=== PATIENT | female | born 1960 | race American Indian/Alaskan Native ===

== ENCOUNTER 2017-07-20 00:59 | Emergency (ER) | payer OTHER ==
[2017-07-20] MEDS ORDERED: TYLENOL PO ONE (02:32)
[2017-07-20 04:01] LABS: Bacteria,Urine 1+ /HPF (Negative); Bilirubin,Urine NEG (Negative); Blood,Urine NEG (Negative); Ketones,Urine NEG (Negative); Leukocyte Esterase,Urine NEG (Negative); Mucus,Urine FEW /HPF; Nitrite,Urine NEG (Negative); Protein,Urine <15 mg/dL mg/dL (Negative); Urobilinogen,Urine < 2.0 mg/dL (<2.0); WBC,Urine < 1.0 /HPF (0.0-6.0)
[2017-07-20 04:07] LABS: Alanine Aminotransferase 13 units/L (7-56); Albumin 4.5 g/dL (3.9-5); Albumin/Globulin Ratio 1.2 %; Alkaline Phosphatase 52 units/L (35-129); Anion Gap 18 mmol/L; BUN/Creatinine Ratio 14; Blood Urea Nitrogen 11 mg/dL (7-17); Calcium 9.6 mg/dL (8.4-10.2); Carbon Dioxide 27 mmol/L (22-30); Chloride 99.1 mmol/L (98-107); Glucose 128 mg/dL (65-100); Lipase 36 units/L (13-60); Sodium 140 mmol/L (137-145); Total Protein 8.2 g/dL (6.3-8.2)
[2017-07-20 04:56] LABS: Basophils % (Auto) 0.3 % (0.0-1.8); Eosinophils % (Auto) 2.8 % (0.0-4.3); Hematocrit 39.4 % (30.3-42.9); Hemoglobin 13.3 gm/dl (10.1-14.3); Mean Corpuscular HGB Conc 34 % (30-34); Mean Corpuscular Hemoglobin 29 pg (28-32); Mean Corpuscular Volume 87 fl (79-97); Platelet Count 314 K/mm3 (140-440); Red Blood Count 4.53 M/mm3 (3.65-5.03); Red Cell Distribution Width 14.4 % (13.2-15.2); White Blood Count 7.9 K/mm3 (4.5-11.0)
--- NOTE | 2017-07-20 07:51 | Emergency Department Report ---
ED Abdominal Pain HPI - General Chief Complaint: Abdominal Pain Stated Complaint: ABD PAIN Time Seen by Provider: 07/20/17 07:46 Source: patient Mode of arrival: Ambulatory Limitations: No Limitations - History of Present Illness Initial Comments: Patient place of bilateral lower flank pain but mostly right sided. She states that it clearly worsens on movement. She doesn't recall any unusual activity or lifting. The pain does not radiate to her lower extremities. She denies numbness tingling or loss of power in the extremities at all. She has had a previous hysterectomy but otherwise no abdominal surgery. She has a history of hypertension. He states the pain has been intermittent for the past actually up to a week. She has not been in touch with her primary care physician. MD Complaint: flank pain -: days(s), week(s) Location: L flank, R flank Radiation: none Migration to: no migration Severity: moderate, severe Quality: aching Consistency: intermittent Worsens With: movement Associated Symptoms: denies other symptoms - Related Data Home Medications Medication Instructions Recorded Confirmed Last Taken Spironolactone 25 mg PO DAILY 07/20/17 07/20/17 Unknown Previous Rx's Medication Instructions Recorded Last Taken Type Cyclobenzaprine HCl [Flexeril 5 MG 5 mg PO TID #14 tab 07/20/17 Unknown Rx TAB] HYDROcodone/ACETAMINOPHEN [[place] 1 each PO Q6H #14 tablet 07/20/17 Unknown Rx 5-325 Tablet] Allergies Allergy/AdvReac Type Severity Reaction Status Date / Time No Known Allergies Allergy Verified 07/20/17 08:00 ED Review of Systems ROS: Stated complaint: ABD PAIN Other details as noted in HPI Constitutional: denies: chills, fever Eyes: denies: eye pain, eye discharge, vision change ENT: denies: ear pain, throat pain Respiratory: denies: cough, shortness of breath, wheezing Cardiovascular: denies: chest pain, palpitations Endocrine: no symptoms reported Gastrointestinal: denies: abdominal pain, nausea, diarrhea Genitourinary: denies: urgency, dysuria, discharge Musculoskeletal: back pain. denies: joint swelling, arthralgia Skin: denies: rash, lesions Neurological: denies: headache, weakness, paresthesias Psychiatric: denies: anxiety, depression Hematological/Lymphatic: denies: easy bleeding, easy bruising ED Past Medical Hx - Past Medical History Hx Hypertension: Yes - Surgical History Additional Surgical History: . Hysterectomy - Social History Smoking Status: Former Smoker Substance Use Type: None - Medications Home Medications: Home Medications Medication Instructions Recorded Confirmed Last Taken Type Cyclobenzaprine HCl [Flexeril 5 MG 5 mg PO TID #14 tab 07/20/17 Unknown Rx TAB] HYDROcodone/ACETAMINOPHEN [[place] 1 each PO Q6H #14 tablet 07/20/17 Unknown Rx 5-325 Tablet] Spironolactone 25 mg PO DAILY 07/20/17 07/20/17 Unknown History ED Physical Exam - General Limitations: No Limitations General appearance: alert, in no apparent distress - Head Head exam: Present: atraumatic, normocephalic - Eye Eye exam: Present: normal appearance, PERRL, EOMI. Absent: scleral icterus - ENT ENT exam: Present: mucous membranes moist - Neck Neck exam: Present: normal inspection - Respiratory Respiratory exam: Present: normal lung sounds bilaterally. Absent: respiratory distress - Cardiovascular Cardiovascular Exam: Present: regular rate, normal rhythm. Absent: systolic murmur, diastolic murmur, rubs, gallop - GI/Abdominal GI/Abdominal exam: Present: soft, normal bowel sounds, other (completely normal abdominal exam). Absent: distended, tenderness, guarding, rebound, rigid - Extremities Exam Extremities exam: Present: normal inspection, full ROM, normal capillary refill. Absent: tenderness, pedal edema, joint swelling - Back Exam Back exam: Present: normal inspection, tenderness, CVA tenderness (R) (there is some bilateral flank tenderness right greater than left. It is not true CVA tenderness.), CVA tenderness (L), muscle spasm. Absent: full ROM, paraspinal tenderness, vertebral tenderness - Neurological Exam Neurological exam: Present: alert, oriented X3, CN II-XII intact. Absent: motor sensory deficit - Psychiatric Psychiatric exam: Present: normal affect, normal mood - Skin Skin exam: Present: warm, dry, intact, normal color. Absent: rash ED Course Vital Signs 07/20/17 07/20/17 07/20/17 01:17 03:32 08:41 Temperature 98.5 F Pulse Rate 85 Respiratory 18 16 16 Rate Blood Pressure 170/87 Blood Pressure [Left] O2 Sat by Pulse 98 Oximetry 07/20/17 07/20/17 07/20/17 08:42 09:11 09:12 Temperature Pulse Rate Respiratory 16 16 16 Rate Blood Pressure Blood Pressure [Left] O2 Sat by Pulse Oximetry 07/20/17 10:45 Temperature Pulse Rate 81 Respiratory 16 Rate Blood Pressure Blood Pressure 124/61 [Left] O2 Sat by Pulse 98 Oximetry - Reevaluation(s) Reevaluation #1: Patient is given analgesia. Her workup was essentially normal. This appears to be musculoskeletal type pain. She is instructed to follow-up with Dr. Valadez. 07/20/17 12:03 ED Medical Decision Making - Lab Data Result diagrams: 07/20/17 04:19 07/20/17 03:03 Laboratory Results - last 24 hr 07/20/17 07/20/17 07/20/17 03:03 04:19 Unknown WBC 7.9 RBC 4.53 Hgb 13.3 Hct 39.4 MCV 87 MCH 29 MCHC 34 RDW 14.4 Plt Count 314 Lymph % (Auto) 24.7 [place] % (Auto) 6.8 Eos % (Auto) 2.8 Baso % (Auto) 0.3 Lymph # 2.0 [place] # 0.5 Eos # 0.2 Baso # 0.0 Seg Neutrophils % 65.4 Seg Neutrophils # 5.2 Sodium 140 Potassium 4.0 Chloride 99.1 Carbon Dioxide 27 Anion Gap 18 BUN 11 Creatinine 0.8 Estimated GFR > 60 BUN/Creatinine Ratio 14 Glucose 128 H Calcium 9.6 Total Bilirubin 0.30 AST 18 ALT 13 Alkaline Phosphatase 52 Total Protein 8.2 Albumin 4.5 Albumin/Globulin Ratio 1.2 Lipase 36 Urine Color Yellow Urine Turbidity Clear Urine pH 5.0 Ur Specific [place] 1.008 Urine Protein <15 mg/dl Urine Glucose (UA) Neg Urine Ketones Neg Urine Blood Neg Urine Nitrite Neg Urine Bilirubin Neg Urine Urobilinogen < 2.0 Ur Leukocyte Esterase Neg Urine WBC (Auto) < 1.0 Urine RBC (Auto) 1.0 Urine Bacteria (Auto) 1+ Urine Mucus Few - Radiology Data Radiology results: report reviewed interpreted by me: CT the abdomen and pelvis was normal Critical care attestation.: If time is entered above; I have spent that time in minutes in the direct care of this critically ill patient, excluding procedure time. ED Disposition Clinical Impression: Musculoskeletal pain Lower back pain Qualifiers: Chronicity: unspecified Back pain laterality: bilateral Sciatica presence: without sciatica Qualified Code(s): M54.5 - Low back pain Disposition: TO HOME OR SELFCARE Is pt being admited?: No Does the pt Need Aspirin: No Condition: Stable Instructions: Abdominal Pain (ED), Low Back Strain (ED), Musculoskeletal Pain ( ED) Additional Instructions: Return any acute change or worsening symptoms. Follow-up with Dr. Valadez. Rx as directed. Prescriptions: Cyclobenzaprine HCl [Flexeril 5 MG TAB] 5 mg PO TID #14 tab HYDROcodone/ACETAMINOPHEN [[place] 5-325 Tablet] 1 each PO Q6H #14 tablet Referrals: PRIMARY CAREMD [Primary Care Provider] - 3-5 Days STEPHEN VALADEZ JR, MD [Staff Physician] - 2-3 Days Time of Disposition: 12:04
[2017-07-20] MEDS ORDERED: ZOFRAN IV ONE (08:16)
[2017-07-20] MEDS ORDERED: DILAUDID IV ONE (08:16)
[2017-07-20] MEDS ORDERED: TORADOL IV ONE (08:16)
--- NOTE | 2017-07-20 09:31 | Cat Scan Report ---
CT scan of abdomen and pelvis without IV contrast: History: Abdominal pain/right flank pain. Findings: Normal lung bases. No pleural pericardial effusion. Normal liver spleen pancreas and gallbladder. Normal adrenals and kidney parenchyma. Normal bladder. No hydronephrosis. No free intraperitoneal fluid or air. No evidence of adenopathy. Appendix is normal. No evidence of diverticulitis. Gaseous colon with minimal stool in colon. No bowel distention. Impression: Essentially negative CT scan of abdomen and CT scan of pelvis.
[2017-07-20 12:52] VITALS: BP 122/79
== END 2017-07-20 12:18 | disposition home or self-care (01) ==
LOC: ED 00:59
DX: M54.5 Low back pain (principal); R10.30 Lower abdominal pain, unspecified; I10 Essential (primary) hypertension
CPT/HCPCS: 36415; 74176; 80053; 81001; 83690; 85025; 96374; 96375; 99284; J1170; J1885; J2405

== ENCOUNTER 2021-01-10 09:10 | Outpatient (CLI) | payer BC ==
--- NOTE | 2021-01-10 10:30 | Mammography Report ---
DIGITAL SCREENING MAMMOGRAM WITH CAD, 01/10/2021 CLINICAL INFORMATION / INDICATION: Routine screening mammography. TECHNIQUE: Digital bilateral 2D mammography was obtained in the craniocaudal and mediolateral obliqu e projections. This examination was interpreted with the benefit of Computer-Aided Detection analysis . COMPARISON: Prior mammogram 11/22/2014 FINDINGS: Breast Density: There are scattered areas of fibroglandular density. No dominant mass, suspicious calcifications, or architectural distortion in either breast. There has been no significant change compared with the prior examination. IMPRESSION: No mammographic evidence of malignancy. Follow up recommendation: Routine yearly BI-RADS Category 1: Negative. A "normal" or negative report should not discourage follow up or biopsy of a clinically significant f inding. A written summary of these findings will be mailed to the patient. The patient will be entered into a mammography reporting system which will generate a reminder letter for the patient's next appointmen t at the appropriate interval. The [employer] recommends yearly mammograms starting at age 40 and continuing as l hermila as a woman is in good health. Breast MRI is recommended for women with an approximate 20-25% or greater lifetime risk of breast cancer, including women with a strong family history of breast or ova tyra cancer or who have been treated for Hodgkin's disease. Signer Name: Comfort Colón MD Signed: 01/10/2021 10:25 AM Workstation Name: [id number]
--- NOTE | 2021-01-10 16:21 | XRay Report ---
Right knee radiograph, 3 views. HISTORY: Pain COMPARISON: None FINDINGS: Tricompartmental osteophytosis with degenerative narrowing of the medial compartment. No ac doyle fracture or malalignment. There is nonspecific moderate joint effusion. No focal soft tissue abno rmality. IMPRESSION: Right knee osteoarthritis, preferentially involving the medial compartment, with nonspeci fic moderate joint effusion. No acute osseous abnormality. Signer Name: Zachary Duran MD Signed: 01/10/2021 4:16 PM Workstation Name: [id number]
== END 2021-01-10 09:11 | disposition home or self-care (01) ==
LOC: MAMMO 09:10
PROVIDERS: ATTEND Internal Medicine
DX: Z12.31 Encounter for screening mammogram for malignant neoplasm of breast (principal); M17.11 Unilateral primary osteoarthritis, right knee; M25.461 Effusion, right knee; M25.761 Osteophyte, right knee
CPT/HCPCS: 77067

== ENCOUNTER 2021-02-17 09:14 | Emergency (ER) | payer BC ==
[2021-02-17 10:07] VITALS: BP 204/105
[2021-02-17] MEDS ORDERED: predniSONE 20 MG TAB PO ONE (11:16)
[2021-02-17] MEDS ORDERED: KETOROLAC 30 MG/1 ML INJ IM ONE (11:16)
--- NOTE | 2021-02-17 11:32 | Emergency Department Report ---
ED Extremity Problem HPI - General Chief complaint: Extremity Problem,Nontraumatic Stated complaint: RT LEG PAIN Time Seen by Provider: 02/17/21 11:12 Source: patient Mode of arrival: Ambulatory Limitations: No Limitations - History of Present Illness Initial comments: This is a 61-year-old female with a longstanding history of chronic right knee pain followed by [facility] who presents ED today with complaint of worsening right knee pain with radiation upper thigh. Patient states that about last month ago she was seen by [facility] where she had a joint injection in the right knee. Patient states that she was doing referred to physical therapy where she has been for the past month and has no relief. Patient states that pain is worsening with increased standing and walking. 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 Patient states that she arrived at work today and felt worsening excruciating right knee pain that is radiating up towards to her thigh. Patient denies any injury or trauma to the knee. Patient denies any fever, chills, redness or swelling to the knee. MD Complaint: extremity pain, joint paint Severity scale (0 -10): 9 - Related Data Home Medications Medication Instructions Recorded Confirmed Last Taken Spironolactone 25 mg PO DAILY 07/20/17 07/20/17 Unknown Previous Rx's Medication Instructions Recorded Last Taken Type Cyclobenzaprine HCl [Flexeril 5 MG 5 mg PO TID #14 tab 07/20/17 Unknown Rx TAB] HYDROcodone/ACETAMINOPHEN [[place] 1 each PO Q6H #14 tablet 07/20/17 Unknown Rx 5-325 Tablet] Acetaminophen/Codeine [Tylenol 1 tab PO Q6H #12 tab 02/17/21 Unknown Rx /Codeine # 3 tab] Cyclobenzaprine [Flexeril] 10 mg PO QHS PRN #20 tablet 02/17/[address] [Fernando Deng] 75 mg PO BID #40 tablet 02/17/21 Unknown Rx Allergies Allergy/AdvReac Type Severity Reaction Status Date / Time No Known Allergies Allergy Verified 07/20/17 08:00 ED Review of Systems ROS: Stated complaint: RT LEG PAIN Other details as noted in HPI Comment: All other systems reviewed and negative ED Past Medical Hx - Past Medical History Previous Medical History?: Yes Hx Hypertension: Yes - Surgical History Past Surgical History?: Yes Additional Surgical History: . Hysterectomy - Social History Smoking Status: Former Smoker Substance Use Type: None - Medications Home Medications: Home Medications Medication Instructions Recorded Confirmed Last Taken Type Cyclobenzaprine HCl [Flexeril 5 MG 5 mg PO TID #14 tab 07/20/17 Unknown Rx TAB] HYDROcodone/ACETAMINOPHEN [[place] 1 each PO Q6H #14 tablet 07/20/17 Unknown Rx 5-325 Tablet] Spironolactone 25 mg PO DAILY 07/20/17 07/20/17 Unknown History Acetaminophen/Codeine [Tylenol 1 tab PO Q6H #12 tab 02/17/21 Unknown Rx /Codeine # 3 tab] Cyclobenzaprine [Flexeril] 10 mg PO QHS PRN #20 tablet 02/17/[address] [Voltaren Dr] 75 mg PO BID #40 tablet 02/17/21 Unknown Rx ED Physical Exam - General Limitations: No Limitations General appearance: alert, in no apparent distress - Head Head exam: Present: atraumatic, normocephalic - Eye Eye exam: Present: normal appearance - ENT ENT exam: Present: mucous membranes moist - Neck Neck exam: Present: normal inspection, full ROM - Respiratory Respiratory exam: Present: normal lung sounds bilaterally. Absent: respiratory distress - Cardiovascular Cardiovascular Exam: Present: regular rate, normal rhythm. Absent: systolic murmur, diastolic murmur, rubs, gallop - GI/Abdominal GI/Abdominal exam: Present: soft, normal bowel sounds - Extremities Exam Extremities exam: Present: normal inspection, full ROM, tenderness - Expanded Lower Extremity Exam Right Hip exam: Present: normal inspection, full ROM. Absent: tenderness Upper Leg exam: Present: normal inspection, full ROM. Absent: tenderness Knee exam: Present: normal inspection, full ROM, tenderness, full knee extension. Absent: swelling, abrasion, effusion, pain/laxity with valgus, pain/laxity with varus Lower Leg exam: Present: normal inspection. Absent: full ROM, tenderness, swelling, erythema, Aby's sign Ankle exam: Present: normal inspection, full ROM. Absent: tenderness, swelling Foot/Toe exam: Present: normal inspection, full ROM - Back Exam Back exam: Present: normal inspection - Neurological Exam Neurological exam: Present: alert, oriented X3 - Psychiatric Psychiatric exam: Present: normal affect, normal mood - Skin Skin exam: Present: warm, dry, intact, normal color. Absent: rash ED Course Vital Signs 02/17/21 09:18 Temperature 98.2 F Pulse Rate 90 Respiratory 18 Rate Blood Pressure 204/105 [Right] O2 Sat by Pulse 98 Oximetry ED Medical Decision Making - Medical Decision Making 60-year-old female presents to ED with knee pain secondary to osteoarthritis ED course: Patient received pain medication in ED. Vital signs are normal patient is in no acute distress Discussed with patient follow-up with primary care physician. Patient was ambulatory throughout ED stay. She was in no respiratory distress or shows any signs of injuries. Discussed the patient and take medications as prescribed. Patient has no neurological deficit. Patient is alert and oriented 3 and understands all instructions given. Critical care attestation.: If time is entered above; I have spent that time in minutes in the direct care of this critically ill patient, excluding procedure time. ED Disposition Clinical Impression: Knee pain, right Disposition: [id number] TO HOME OR SELFCARE Is pt being admited?: No Does the pt Need Aspirin: No Condition: Stable Instructions: How to Use Cold Therapy, [id number], Joint Pain, [id number], Acute Knee Pain, Adult, How to Use a Knee Brace Additional Instructions: Make sure to follow up with the primary care physician as discussed. Take all your medications as you've been prescribed. If you have any worsening symptoms or develop new symptoms please return to ED immediately. Prescriptions: Cyclobenzaprine [Flexeril] 10 mg PO QHS PRN #20 tablet PRN Reason: Muscle Spasm Acetaminophen/Codeine [Tylenol /Codeine # 3 tab] 1 tab PO Q6H #12 tab Diclofenac [Fernando Deng] 75 mg PO BID #40 tablet Referrals: ROBERT EARLY MD [Primary Care Provider] - 3-5 Days [facility] [Provider Group] - 3-5 Days JUANITA CHI MD [Staff Physician] - 3-5 Days Forms: Work/School Release Form(ED) Time of Disposition: 12:22
== END 2021-02-17 12:53 | disposition home or self-care (01) ==
LOC: ED 09:14
DX: M25.561 Pain in right knee (principal); I10 Essential (primary) hypertension; Z87.891 Personal history of nicotine dependence; Z90.710 Acquired absence of both cervix and uterus; Z98.890 Other specified postprocedural states; Z79.899 Other long term (current) drug therapy
CPT/HCPCS: 96372; 99282; J1885; J7512